=== PATIENT | female | born 1970 | race Two or more races ===

== ENCOUNTER 2020-07-25 18:17 | Inpatient (IN) | payer MEDICAID, OTHER ==
[~2020-07-25] VITALS: Ht 160 cm; Wt 79.5 kg
[2020-07-25 21:01] LABS: Basophils # (auto) 0.1 10 ^3/uL (0-0.2); Basophils % (auto) 0.8 % (0.0-2.0); Eosinophils # (auto) 0.1 10 ^3/uL (0-0.8); Eosinophils % (auto) 1.6 % (0.0-7.0); Hematocrit 32.1 % (36.0-46.0); Lymphocytes % (auto) 40.6 % (10.0-50.0); Mean Corpuscular Hemoglobin 27.1 pg (28.0-32.0); Mean Corpuscular Hgb Conc. 34.2 g/dL (32.0-36.0); Mean Corpuscular Volume 79.3 fL (80.0-100.0); Monocytes # (auto) 0.4 10 ^3/uL (0-1.3); Monocytes % (auto) 5.3 % (0.0-12.0); Neutrophils # (auto) 3.8 10 ^3/uL (1.6-8.6); Neutrophils % (auto) 51.7 % (37.0-80.0); Nucleated Red Blood Cells % 0.1 %; Platelet Count (auto) 356 10^3/uL (140-450); Red Blood Cells 4.05 10^6/uL (4.0-5.20); Red Cell Distribution Width 16.5 % (11.8-14.3); White Blood Cell 7.3 10^3/uL (4.4-10.8)
[2020-07-25 21:12] LABS: Albumin 3.4 g/dL (3.4-5.0); BUN/Creatinine Ratio 16.7; Calcium 8.4 mg/dL (8.5-10.1); Potassium 3.6 mmol/L (3.5-5.1)
[2020-07-25 21:15] LABS: Bilirubin, Total 0.1 mg/dL (0.2-1.0); INR 1.03 (0.9-1.15); Total Protein 7.4 g/dL (6.4-8.2)
[2020-07-25] MEDS ORDERED: ACETAMINOPHEN 325 MG TAB PO PRN (21:45)
[2020-07-25] MEDS ORDERED: TEMAZEPAM 15 MG CAP PO PRN (21:45)
[2020-07-25] MEDS: FAMOTIDINE 20 MG TAB PO SCH (22:42)
[2020-07-25] MEDS: HYDROcodone-ACET 5/325MG TAB PO PRN (22:53)
[2020-07-25] MEDS: ONDANSETRON HCL 4 MG/2 ML VIAL IV PRN (22:53)
[2020-07-25] MEDS: MORPHINE SULF INJ 2 MG/ML SYRINGE 1ML IV PRN (22:54)
[2020-07-26 06:43] LABS: Basophils # (auto) 0 10 ^3/uL (0-0.2); Basophils % (auto) 0.6 % (0.0-2.0); Eosinophils # (auto) 0.1 10 ^3/uL (0-0.8); Eosinophils % (auto) 1.5 % (0.0-7.0); Hematocrit 31.5 % (36.0-46.0); Hemoglobin 10.6 g/dL (12.2-16.2); Lymphocytes # (auto) 3.2 10 ^3/uL (0.4-5.4); Mean Corpuscular Hemoglobin 27.1 pg (28.0-32.0); Mean Corpuscular Hgb Conc. 33.9 g/dL (32.0-36.0); Mean Corpuscular Volume 80.2 fL (80.0-100.0); Monocytes # (auto) 0.5 10 ^3/uL (0-1.3); Monocytes % (auto) 6.2 % (0.0-12.0); Neutrophils # (auto) 4.1 10 ^3/uL (1.6-8.6); Neutrophils % (auto) 51.7 % (37.0-80.0); Nucleated Red Blood Cells % 0.1 %; Platelet Count (auto) 340 10^3/uL (140-450); Red Blood Cells 3.92 10^6/uL (4.0-5.20); Red Cell Distribution Width 16.7 % (11.8-14.3)
[2020-07-26] MEDS: ACCU-CHEK COMFORT CURVE STRIP VI SCH ×4 (06:45→22:25)
[2020-07-26] MEDS: InsuLIN REG 1unit/0.01ml Soln (100units/ml) SC SCH ×4 (06:46→22:00)
[2020-07-26 07:03] LABS: BUN/Creatinine Ratio 18.3; Calcium 8.2 mg/dL (8.5-10.1); Potassium 3.4 mmol/L (3.5-5.1)
[2020-07-26] MEDS: MORPHINE SULF INJ 2 MG/ML SYRINGE 1ML IV PRN ×4 (07:28→21:53)
[2020-07-26] MEDS: ONDANSETRON HCL 4 MG/2 ML VIAL IV PRN ×2 (07:28→15:45)
[2020-07-26] MEDS ORDERED: KETOROLAC TROMETH 30 MG/ML 1ML VIAL IV ONE (08:00)
[2020-07-26] MEDS: HYDROcodone-ACET 5/325MG TAB PO PRN (09:48)
[2020-07-26] MEDS: FAMOTIDINE 20 MG TAB PO SCH ×2 (09:48→21:52)
[2020-07-26] MEDS: DEXTROSE (50%) 50ML SYRG IV PRN (12:12)
[2020-07-26 15:30] VITALS: BP 173/85
[2020-07-26] MEDS ORDERED: CYCLOBENZAPRINE HCL 10 MG TAB PO PRN (16:00)
[2020-07-26 17:00] VITALS: BP 173/85
[2020-07-26] MEDS: ALPRAZolam 0.5 MG TAB PO PRN (20:22)
[2020-07-26] MEDS: GABAPENTIN 300 MG CAP PO SCH (21:51)
[2020-07-26] MEDS: guaiFENesin 200 MG/10 ML UD PO PRN (21:53)
[2020-07-26 22:00] VITALS: BP 171/97
[2020-07-26 23:00] VITALS: BP 161/80
[2020-07-27] VITALS (8 sets, daily range): BP systolic 146–183; BP diastolic 80–102
[2020-07-27] MEDS: MORPHINE SULF INJ 2 MG/ML SYRINGE 1ML IV PRN ×2 (04:58→09:56)
[2020-07-27] MEDS: DEXTROSE (50%) 50ML SYRG IV PRN (06:12)
[2020-07-27] MEDS: InsuLIN REG 1unit/0.01ml Soln (100units/ml) SC SCH ×4 (06:24→20:00)
[2020-07-27] MEDS: ACCU-CHEK COMFORT CURVE STRIP VI SCH ×5 (06:25→23:59)
[2020-07-27 06:28] LABS: Urine Bacteria NONE SEEN /hpf (None Seen); Urine Blood TRACE /uL (Negative); Urine Mucus FEW (None Seen); Urine Specific Gravity 1.014 (1.001-1.035); Urine WBC 1 /hpf (0 - 5)
[2020-07-27] MEDS: D5W/SOD CHL 0.45% 1,000 ML IV SCH ×3 (08:17→23:52)
[2020-07-27] MEDS: FAMOTIDINE 20 MG TAB PO SCH ×2 (09:57→22:17)
[2020-07-27] MEDS: GABAPENTIN 300 MG CAP PO SCH ×2 (09:57→22:17)
[2020-07-27] MEDS ORDERED: DEXTROSE (50%) 50ML SYRG IV PRN (10:15)
[2020-07-27] MEDS: hydrALAZINE HCL 20 MG/ML VL IV PRN ×2 (12:18→20:25)
[2020-07-27] MEDS: HYDROcodone-ACET 5/325MG TAB PO PRN (12:18)
[2020-07-27] MEDS ORDERED: ceFAZolin 1GM/50ML 100 ML IV ONE (13:13)
[2020-07-27] MEDS ORDERED: TETRACAINE 1% INJ 2 ML VIAL IJ ONE (16:10)
[2020-07-27] MEDS ORDERED: PROPOFOL 10 MG/ML 20 ML IV ONE (16:35)
[2020-07-27] MEDS ORDERED: MORPHINE SULF(PF) 0.5MG/ML 10ML VIAL ONE (16:40)
[2020-07-27] MEDS ORDERED: fentaNYL CITRATE 100 MCG/2 ML VL ONE (16:40)
[2020-07-27] MEDS ORDERED: MIDAZOLAM HCL 1MG/1ML-2 ML VIAL ONE (16:41)
[2020-07-27] MEDS ORDERED: DexAMETHasone SOD PHOS 10MG/1ML VIAL INJ ONE (18:19)
[2020-07-27] MEDS ORDERED: ONDANSETRON HCL 4 MG/2 ML VIAL IV PRN (18:45)
[2020-07-27] MEDS ORDERED: HYDROmorphone HCL 2 MG/ML VL IV PRN (18:45)
[2020-07-27] MEDS ORDERED: NALBUPHINE HCL 10 MG/1ml INJECTION SUBCUT ONE (18:45)
[2020-07-27] MEDS ORDERED: NALOXONE HCL 0.4 MG/ML VIAL IV PRN (18:45)
[2020-07-27] MEDS ORDERED: LABETALOL HCL 5 MG/ML 4ML SYRINGE IV PRN (18:45)
[2020-07-27] MEDS ORDERED: DexAMETHasone SOD PHOS 10MG/1ML VIAL INJ IV PRN (18:45)
[2020-07-27] MEDS ORDERED: ePHEDrine SULFATE 50 MG/ML AMP IV PRN (18:45)
[2020-07-27] MEDS ORDERED: D5W/LACTATED RINGERS 1,000 ML IV ONE (19:00)
[2020-07-27] MEDS: KETOROLAC TROMETH 30 MG/ML 1ML VIAL IV PRN (20:48)
[2020-07-27] MEDS ORDERED: GABA300C10 PO (21:27)
[2020-07-27] MEDS: HYDROcodone-ACET 10/325MG TAB PO PRN (23:52)
[2020-07-28] VITALS (19 sets, daily range): BP systolic 126–170; BP diastolic 55–104
[2020-07-28] MEDS: diphenhdrAMINE HCL 50 MG/1 ML VL IV PRN ×4 (00:07→22:03)
[2020-07-28] MEDS: InsuLIN REG 1unit/0.01ml Soln (100units/ml) SC SCH ×6 (00:12→19:58)
[2020-07-28] MEDS: ACCU-CHEK COMFORT CURVE STRIP VI SCH ×5 (04:03→19:53)
[2020-07-28] MEDS: KETOROLAC TROMETH 30 MG/ML 1ML VIAL IV PRN ×3 (04:05→16:39)
[2020-07-28] MEDS: D5W/SOD CHL 0.45% 1,000 ML IV SCH ×2 (06:38→16:39)
[2020-07-28] MEDS: hydrALAZINE HCL 20 MG/ML VL IV PRN (06:40)
[2020-07-28] MEDS: HYDROcodone-ACET 10/325MG TAB PO PRN ×2 (06:40→21:56)
[2020-07-28] MEDS: FAMOTIDINE 20 MG TAB PO SCH ×2 (08:56→21:55)
[2020-07-28] MEDS: GABAPENTIN 300 MG CAP PO SCH ×2 (08:56→21:56)
[2020-07-28] MEDS: ENOXAPARIN SOD 40 MG/0.4 ML SYRINGE SC SCH ×2 (08:56→21:57)
[2020-07-28] MEDS: ALPRAZolam 0.5 MG TAB PO PRN (14:03)
[2020-07-28] MEDS: METOPROLOL TARTRATE 25 MG TAB PO SCH ×2 (16:38→21:57)
[2020-07-28] MEDS: guaiFENesin 200 MG/10 ML UD PO PRN (19:47)
[2020-07-29] MEDS: InsuLIN REG 1unit/0.01ml Soln (100units/ml) SC SCH ×6 (00:02→20:26)
[2020-07-29] MEDS: KETOROLAC TROMETH 30 MG/ML 1ML VIAL IV PRN ×2 (00:15→12:03)
[2020-07-29] MEDS: ACCU-CHEK COMFORT CURVE STRIP VI SCH ×6 (04:24→20:28)
[2020-07-29 05:00] VITALS: BP 119/65
[2020-07-29] MEDS: HYDROcodone-ACET 10/325MG TAB PO PRN ×3 (06:36→22:08)
[2020-07-29] MEDS: METOPROLOL TARTRATE 25 MG TAB PO SCH ×4 (06:37→22:08)
[2020-07-29 06:52] LABS: Albumin 2.5 g/dL (3.4-5.0); Potassium 4.3 mmol/L (3.5-5.1)
[2020-07-29 06:56] LABS: BUN/Creatinine Ratio 29.3; Bilirubin, Total 0.4 mg/dL (0.2-1.0); Total Protein 6.3 g/dL (6.4-8.2)
[2020-07-29 08:30] VITALS: BP 116/63
[2020-07-29] MEDS: FAMOTIDINE 20 MG TAB PO SCH ×2 (08:51→22:08)
[2020-07-29] MEDS: GABAPENTIN 300 MG CAP PO SCH ×2 (08:51→22:08)
[2020-07-29] MEDS: ENOXAPARIN SOD 40 MG/0.4 ML SYRINGE SC SCH ×2 (08:52→22:08)
[2020-07-29] MEDS: diphenhdrAMINE HCL 50 MG/1 ML VL IV PRN ×3 (09:16→20:28)
[2020-07-29 13:00] VITALS: BP 133/73
[2020-07-29 17:00] VITALS: BP 166/85
[2020-07-29] MEDS: MORPHINE SULF INJ 2 MG/ML SYRINGE 1ML IV PRN (17:45)
[2020-07-29] MEDS: hydrALAZINE HCL 20 MG/ML VL IV PRN (18:46)
[2020-07-29 22:00] VITALS: BP 149/78
[2020-07-29] MEDS: ALPRAZolam 0.5 MG TAB PO PRN (22:14)
[2020-07-30] MEDS: InsuLIN REG 1unit/0.01ml Soln (100units/ml) SC SCH ×6 (00:12→20:22)
[2020-07-30] MEDS: ACCU-CHEK COMFORT CURVE STRIP VI SCH ×6 (00:13→20:13)
[2020-07-30] MEDS: HYDROcodone-ACET 10/325MG TAB PO PRN ×4 (04:01→20:17)
[2020-07-30 05:00] VITALS: BP 127/63
[2020-07-30] MEDS: METOPROLOL TARTRATE 25 MG TAB PO SCH ×3 (06:38→21:42)
[2020-07-30 07:31] LABS: Basophils # (auto) 0 10 ^3/uL (0-0.2); Basophils % (auto) 0.6 % (0.0-2.0); Eosinophils # (auto) 0.2 10 ^3/uL (0-0.8); Eosinophils % (auto) 2.6 % (0.0-7.0); Hematocrit 27.5 % (36.0-46.0); Hemoglobin 9.3 g/dL (12.2-16.2); Lymphocytes # (auto) 2.8 10 ^3/uL (0.4-5.4); Lymphocytes % (auto) 34.9 % (10.0-50.0); Mean Corpuscular Hemoglobin 26.9 pg (28.0-32.0); Mean Corpuscular Hgb Conc. 33.7 g/dL (32.0-36.0); Mean Corpuscular Volume 79.9 fL (80.0-100.0); Monocytes # (auto) 0.5 10 ^3/uL (0-1.3); Monocytes % (auto) 6.5 % (0.0-12.0); Neutrophils # (auto) 4.5 10 ^3/uL (1.6-8.6); Neutrophils % (auto) 55.4 % (37.0-80.0); Platelet Count (auto) 367 10^3/uL (140-450); Red Blood Cells 3.44 10^6/uL (4.0-5.20); Red Cell Distribution Width 16.5 % (11.8-14.3); White Blood Cell 8.1 10^3/uL (4.4-10.8)
[2020-07-30 08:48] VITALS: BP 119/66
[2020-07-30] MEDS: FAMOTIDINE 20 MG TAB PO SCH ×2 (09:28→21:43)
[2020-07-30] MEDS: LACTULOSE 20Gm/30ML SOLN PO PRN (09:28)
[2020-07-30] MEDS: ASPirin 81 mg TAB PO SCH (09:28)
[2020-07-30] MEDS: ENOXAPARIN SOD 40 MG/0.4 ML SYRINGE SC SCH ×2 (09:29→21:43)
[2020-07-30] MEDS: GABAPENTIN 300 MG CAP PO SCH ×2 (09:29→21:42)
[2020-07-30 13:00] VITALS: BP 150/78
[2020-07-30 13:50] VITALS: BP 166/74
[2020-07-30 17:00] VITALS: BP 156/89
[2020-07-30 22:00] VITALS: BP 161/90
[2020-07-30] MEDS: ALPRAZolam 0.5 MG TAB PO PRN (22:28)
[2020-07-30] MEDS: diphenhdrAMINE HCL 50 MG/1 ML VL IV PRN (22:57)
[2020-07-31] MEDS: ACCU-CHEK COMFORT CURVE STRIP VI SCH ×7 (00:10→23:59)
[2020-07-31] MEDS: InsuLIN REG 1unit/0.01ml Soln (100units/ml) SC SCH ×6 (00:15→20:10)
[2020-07-31 05:00] VITALS: BP 135/75
[2020-07-31] MEDS: METOPROLOL TARTRATE 25 MG TAB PO SCH (06:11)
[2020-07-31] MEDS: HYDROcodone-ACET 10/325MG TAB PO PRN ×3 (06:19→22:51)
[2020-07-31 08:34] LABS: Basophils # (auto) 0.1 10 ^3/uL (0-0.2); Basophils % (auto) 0.8 % (0.0-2.0); Eosinophils # (auto) 0.2 10 ^3/uL (0-0.8); Eosinophils % (auto) 2.2 % (0.0-7.0); Hematocrit 28.6 % (36.0-46.0); Hemoglobin 9.7 g/dL (12.2-16.2); Lymphocytes # (auto) 2.2 10 ^3/uL (0.4-5.4); Lymphocytes % (auto) 27.5 % (10.0-50.0); Mean Corpuscular Hemoglobin 26.7 pg (28.0-32.0); Mean Corpuscular Hgb Conc. 33.7 g/dL (32.0-36.0); Mean Corpuscular Volume 79.2 fL (80.0-100.0); Monocytes # (auto) 0.5 10 ^3/uL (0-1.3); Monocytes % (auto) 6.5 % (0.0-12.0); Neutrophils # (auto) 5.1 10 ^3/uL (1.6-8.6); Nucleated Red Blood Cells % 0.1 %; Platelet Count (auto) 434 10^3/uL (140-450); Red Blood Cells 3.61 10^6/uL (4.0-5.20)
[2020-07-31 09:00] VITALS: BP 124/76
[2020-07-31] MEDS: GABAPENTIN 300 MG CAP PO SCH ×2 (10:39→22:35)
[2020-07-31] MEDS: ASPirin 81 mg TAB PO SCH (10:39)
[2020-07-31] MEDS: FAMOTIDINE 20 MG TAB PO SCH ×2 (10:39→22:35)
[2020-07-31] MEDS: ENOXAPARIN SOD 40 MG/0.4 ML SYRINGE SC SCH ×2 (10:40→22:35)
[2020-07-31] MEDS: LACTULOSE 20Gm/30ML SOLN PO PRN (10:40)
[2020-07-31] MEDS: guaiFENesin 200 MG/10 ML UD PO PRN ×2 (12:31→22:36)
[2020-07-31 13:00] VITALS: BP 135/85
[2020-07-31 17:00] VITALS: BP 166/82
[2020-07-31 22:00] VITALS: BP 136/86
[2020-07-31] MEDS: METOPROLOL TARTRATE 50 MG TAB PO SCH (22:35)
[2020-07-31] MEDS: diphenhdrAMINE HCL 50 MG/1 ML VL IV PRN (22:36)
[2020-08-01] MEDS: InsuLIN REG 1unit/0.01ml Soln (100units/ml) SC SCH ×4 (00:02→12:20)
[2020-08-01] MEDS: KETOROLAC TROMETH 30 MG/ML 1ML VIAL IV PRN (00:04)
[2020-08-01] MEDS: ACCU-CHEK COMFORT CURVE STRIP VI SCH ×3 (04:06→12:19)
[2020-08-01 05:00] VITALS: BP 119/70
[2020-08-01 06:09] LABS: Eosinophils # (auto) 0.3 10 ^3/uL (0-0.8); Lymphocytes # (auto) 2.6 10 ^3/uL (0.4-5.4); Mean Corpuscular Hgb Conc. 34.3 g/dL (32.0-36.0); Monocytes # (auto) 0.6 10 ^3/uL (0-1.3); Nucleated Red Blood Cells % 0.1 %
[2020-08-01 06:12] LABS: Basophils # (auto) 0.1 10 ^3/uL (0-0.2); Basophils % (auto) 0.8 % (0.0-2.0); Eosinophils % (auto) 3.8 % (0.0-7.0); Hematocrit 29.4 % (36.0-46.0); Hemoglobin 10.1 g/dL (12.2-16.2); Lymphocytes % (auto) 33.6 % (10.0-50.0); Mean Corpuscular Hemoglobin 27.1 pg (28.0-32.0); Monocytes % (auto) 7.5 % (0.0-12.0); Neutrophils # (auto) 4.2 10 ^3/uL (1.6-8.6); Neutrophils % (auto) 54.3 % (37.0-80.0); Platelet Count (auto) 470 10^3/uL (140-450); Red Blood Cells 3.72 10^6/uL (4.0-5.20); Red Cell Distribution Width 16.2 % (11.8-14.3); White Blood Cell 7.8 10^3/uL (4.4-10.8)
[2020-08-01 09:00] VITALS: BP 136/78
[2020-08-01] MEDS: METOPROLOL TARTRATE 50 MG TAB PO SCH (09:51)
[2020-08-01] MEDS: ASPirin 81 mg TAB PO SCH (09:51)
[2020-08-01] MEDS: FAMOTIDINE 20 MG TAB PO SCH (09:51)
[2020-08-01] MEDS: GABAPENTIN 300 MG CAP PO SCH (09:51)
[2020-08-01] MEDS: ENOXAPARIN SOD 40 MG/0.4 ML SYRINGE SC SCH (09:53)
[2020-08-01] MEDS: HYDROcodone-ACET 10/325MG TAB PO PRN (10:00)
[2020-08-01 13:09] VITALS: BP 138/75
[2020-08-01 13:53] VITALS: BP 138/75
== END 2020-08-01 14:55 | disposition home health service (06) | DRG 313 ==
LOC: CENTRAL 18:17 → ER 18:17 → OVERFLOW 22:39 → CENTRAL 07-26 14:56 → TELE-CENTR 07-27 22:46
PROVIDERS: ADMIT Nurse Practitioner; ATTEND Internal Medicine
PROC: 0QSG04Z Reposition Right Tibia with Internal Fixation Device, Open Approach (ICD-10-PCS; 2020-07-27)
PROC: BQ1GZZZ Fluoroscopy of Right Ankle (ICD-10-PCS; 2020-07-27)
PROC: 0QSJ04Z Reposition Right Fibula with Internal Fixation Device, Open Approach (ICD-10-PCS; principal; 2020-07-27 16:55)
DX: S82.851A Displaced trimalleolar fracture of right lower leg, initial encounter for closed fracture (principal); E11.40 Type 2 diabetes mellitus with diabetic neuropathy, unspecified; E11.649 Type 2 diabetes mellitus with hypoglycemia without coma; I25.10 Atherosclerotic heart disease of native coronary artery without angina pectoris; W01.0XXA Fall on same level from slipping, tripping and stumbling without subsequent striking against object, initial encounter; J45.909 Unspecified asthma, uncomplicated; Z79.899 Other long term (current) drug therapy; Z82.49 Family history of ischemic heart disease and other diseases of the circulatory system; Z83.3 Family history of diabetes mellitus; Z90.710 Acquired absence of both cervix and uterus; Z95.2 Presence of prosthetic heart valve; Z95.5 Presence of coronary angioplasty implant and graft; Y93.89 Activity, other specified; Y92.89 Other specified places as the place of occurrence of the external cause; Y99.8 Other external cause status
CPT/HCPCS: 36415; 71045; 73600; 73610; 76000; 80048; 80053; 81001; 82947; 82962; 84702; 85025; 85610; 85730; 86850; 86900; 86901; 87426; 93005; 93306; 93971; 97110; 97116; 97530; G0378; J0690; J1100; J1815; J1885; J2250; J2405; J2704